=== PATIENT | female | born 1935 | race Caucasian/White ===

== ENCOUNTER 2017-12-21 13:33 | Inpatient (IN) | payer OTHER ==
[~2017-12-21] VITALS: Ht 157.5 cm; Wt 72.5 kg
[~2017-12-21 13:33] MED LIST: ADVAIR 500/501 DISK IH; AERONEB GO NEB1 EACH MC; ALBUTEROL SULF8.5 GM IH; ALPRAZOLAM0.25 M2 PO; ALPRAZOLAM0.25 MG PO; AMLODIPINE BESYL5 MG PO; APRISO0.375 GM PO; ASACOL400 MG PO; ASPIR-TRIN325 M1 PO; ASPIRIN325 MG PO; BENTYL10 MG PO; BENTYL20 MG PO; CARDIZEM CD,CA240 M1 PO; CARDIZEM CD,CA360 MG PO; CARDIZEM CD360 MG PO; CATAPRES0.2 MG PO; CELEBREX200 MG PO; CIPRO250 MG PO; CIPRO500 MG PO; CLONAZEPAM1 MG PO; CLONIDINE HCL0.2 MG PO; COLACE100 MG PO; COMBIVENT INH14.7 GM IH; COMBIVENT RESPIM4 GM IH; COMBIVENT200 INHALA IH; COZAAR50 MG PO; DELZICOL400 M1 PO; DELZICOL400 MG PO; DICYCLOMINE HCL20 MG PO; DILTIAZEM 24HR360 M1 PO; DULCOLAX5 MG PO; DUONEB 2.5-0.5 M3 ML AEROSOL; DUONEB 2.5-0.5 M3 ML IH; DUONEB3 ML IH; ENALAPRIL MALEAT5 M1 PO; ENDOCET 5-3251 EACH PO; ERY-TAB500 MG PO; EXTRA STRENGTH500 M1 PO; FLAGYL500 MG PO; FLEXERIL10 MG PO; FUROSEMIDE40 MG PO; HYDROCODON-ACE1 EAC7 PO; K-DUR10 MEQ PO; KLOR-CON 1010 ME1 PO; KONSYL1 EACH PO; LASIX40 MG PO; LEVAQUIN750 MG PO; LITE COAT ASPI325 M1 PO; LOPRESSOR12.5 MG PO; LOPRESSOR25 MG PO; LOPRESSOR50 MG PO; LOSARTAN POTAS100 MG PO; LOSARTAN POTASS50 MG PO; Levaquin PO; METAMUCIL PACKE1 PKT PO; METOPROLOL TART25 MG PO; METOPROLOL TART50 MG PO; METRONIDAZOLE500 MG PO; MICRO-K10 ME1 PO; MIRTAZAPINE30 MG PO; Metamucil Packet PO; Motrin PO; NASONEX17 GM BOTH NARES; NASONEX17 GM NS; NORCO 5/3251 TABLET PO; OMEPRAZOLE40 M1 PO; OXAYDO5 MG PO; OXYCODONE HCL5 MG PO; PAROXETINE HCL10 MG PO; PAXIL10 MG PO; PENTASA250 MG PO; PERCOCET 5/31 TABLET PO; PHILLIPS' COLO1 EACH PO; POLYETHYLENE GL17 GM PO; POTASSIUM CHLO10 ME3 PO; PREDNISOLONE SO10 MG PO; PREDNISONE20 MG PO; PREDNISONE5 MG PO; PRILOSEC40 MG PO; PROMETHAZINE HC25 M1 PO; PROMETHAZINE12.5 M1 PO; REMERON15 M2 PO; REMERON30 M2 PO; ROXICODONE5 MG PO; Remeron PO; SIMVASTATIN40 MG PO; SINGULAIR10 MG PO; TAZTIA XT360 MG PO; THEO-DUR,THEOC200 MG PO; THEOPHYLLINE A200 M1 PO; TRAMADOL HCL50 MG PO; TYLENOL EXTRA500 MG PO; Tylenol Extra Streng PO; ULTRAM50 MG PO; WELLBUTRIN SR150 MG PO; Wellbutrin SR PO; XANAX0.25 MG PO; Xanax PO; ZOCOR40 MG PO; ZOLOFT25 MG PO; ZOLOFT50 MG PO; [UNRECOGNIZED DRUG - OTHER] PO
[2017-12-21 14:41] LABS: BASOPHIL (%) 0.6 % (0-1); EOSINOPHIL (%) 2.6 % (0-5); EOSINOPHIL COUNT 0.1 K/uL (0-0.3); HEMATOCRIT 33.4 % (36.0-46.0); HEMOGLOBIN 11.4 G/DL (11.9-15.5); IMMATURE GRANULOCYTE (%) 0.7 % (0.0-0.7); LYMPHOCYTE (%) 13.3 % (15-42); LYMPHOCYTE COUNT 0.7 K/uL (1.0-2.8); MCH 34.1 PG (29.0-34.0); MCHC 34.1 G/DL (30.0-36.0); MONOCYTE (%) 9.9 % (3-12); MONOCYTE COUNT 0.5 K/uL (0-0.8); NEUTROPHIL (%) 72.9 % (45-76); NEUTROPHIL COUNT 3.9 K/uL (1.8-6.4); PLATELET COUNT 187 K/uL (156-360); RBC DIS.WIDTH-CV 13.5 % (11.8-14.6); RBC DIS.WIDTH-SD 48.5 % (39-53); RED BLOOD COUNT 3.34 M/uL (3.80-5.20); WHITE BLOOD COUNT 5.4 K/uL (4.1-10.2)
[2017-12-21 14:49] LABS: INTER. NORMALIZED RATIO 1.1
[2017-12-21 14:50] LABS: CHLORIDE 108 mEq/L (99-109); POTASSIUM 3.9 mEq/L (3.7-5.4); SODIUM 143 mEq/L (136-147)
[2017-12-21 14:51] LABS: PTT 27.7 SEC (25-37)
[2017-12-21 14:52] LABS: GLUCOSE 106 mg/dL (70-99)
[2017-12-21 14:56] LABS: CREATININE 1.1 mg/dL (0.6-1.3); GFR ESTIMATE (CALCULATED) 51 mL/min/
[2017-12-21 14:57] LABS: UREA NITROGEN (BUN) 15 mg/dL (9-23)
[2017-12-21 15:01] LABS: TROP-I INTERPRETATION NEGATIVE; TROPONIN-I < 0.01 ng/mL (0.0-0.30)
[2017-12-21] MEDS ORDERED: COZAAR100 MG PO (19:02)
[2017-12-21] MEDS ORDERED: CATAPRES0.1 MG PO (19:03)
[2017-12-21] MEDS ORDERED: LOPRESSOR25 MG PO (19:04)
[2017-12-21] MEDS ORDERED: SPIRIVA RESPIMAT4 GM IH (19:05)
[2017-12-21] MEDS ORDERED: MIRTAZAPINE30 MG PO (19:05)
[2017-12-21] MEDS ORDERED: LIDOCAINE PAIN1 EACH TP (19:06)
[2017-12-21] MEDS ORDERED: TYLENOL EXTRA500 MG PO (19:07)
[2017-12-21] MEDS ORDERED: MICRO-K10 ME2 PO (19:08)
[2017-12-21] MEDS ORDERED: AMLODIPINE BESY10 MG PO (19:12)
[2017-12-21] MEDS ORDERED: SERTRALINE HCL25 MG PO (19:12)
[2017-12-21 21:51] LABS: TROP-I INTERPRETATION NEGATIVE; TROPONIN-I < 0.01 ng/mL (0.0-0.30)
[2017-12-21 22:06] VITALS: BP 126/61
[2017-12-22 04:00] VITALS: BP 173/74
[2017-12-22 06:15] LABS: HEMOGLOBIN 11.5 G/DL (11.9-15.5); MCH 33.2 PG (29.0-34.0); MCHC 32.9 G/DL (30.0-36.0); MCV 101.2 FL (83-99); NRBC (%) 0.4 /100 WBC (0-0); PLATELET COUNT 205 K/uL (156-360); RBC DIS.WIDTH-CV 13.3 % (11.8-14.6); RBC DIS.WIDTH-SD 49.3 % (39-53); RED BLOOD COUNT 3.46 M/uL (3.80-5.20); WHITE BLOOD COUNT 5.1 K/uL (4.1-10.2)
[2017-12-22 06:37] LABS: CHLORIDE 107 MEQ/L (99-109); CREATININE 1.1 MG/DL (0.6-1.3); GFR ESTIMATE (CALCULATED) 51 mL/min/; POTASSIUM 4.2 MEQ/L (3.7-5.4); SODIUM 143 MEQ/L (136-147); UREA NITROGEN (BUN) 16 mg/dL (9-23)
[2017-12-22 06:39] LABS: TROP-I INTERPRETATION NEGATIVE; TROPONIN-I < 0.01 ng/mL (0.0-0.30)
[2017-12-22 06:49] LABS: GLUCOSE 190 mg/dL (70-99)
[2017-12-22 07:36] VITALS: BP 139/65
[2017-12-22 11:46] VITALS: BP 133/58
[2017-12-22 15:50] LABS: APPEARANCE CLEAR ((CLEAR)); BILIRUBIN NEGATIVE; BLOOD NEGATIVE; COLOR YELLOW ((YELLOW)); GLUCOSE (STRIP) >=500; KETONES NEGATIVE; LEUKOCYTES TRACE; NITRITE NEGATIVE; PROTEIN (STRIP) 30; UROBILINOGEN 0.2 MG/DL (0.2-1.0)
[2017-12-22 16:06] VITALS: BP 132/64
[2017-12-22 16:11] LABS: BACTERIA NONE SEEN /HPF; EPITHELIAL CELLS RARE /HPF; HYALINE CASTS 0-5 /LPF; MUCUS TRACE /LPF; RED BLOOD CELLS 0-5 /HPF (0-5); UCUL ADDED? NO; WHITE BLOOD CELLS 0-5 /HPF (0-5)
[2017-12-22 19:30] VITALS: BP 132/61
[2017-12-23 00:06] VITALS: BP 138/64
[2017-12-23 03:51] VITALS: BP 131/72
[2017-12-23 07:36] VITALS: BP 128/78
[2017-12-23] MEDS ORDERED: PREDNISONE20 MG PO (08:11)
[2017-12-23] MEDS ORDERED: DUONEB 2.5-0.5 M3 ML AEROSOL (10:43)
== END 2017-12-23 10:48 | disposition home or self-care (01) | DRG 190 ==
LOC: EME 13:33 → 5SOUTH 20:27 → EDOF 20:27 → 5SOUTH 21:15
PROVIDERS: Emergency Medicine; Hospitalist; Physician Assistant
DX: J44.1 Chronic obstructive pulmonary disease with (acute) exacerbation (principal); J96.21 Acute and chronic respiratory failure with hypoxia; J45.901 Unspecified asthma with (acute) exacerbation; K58.9 Irritable bowel syndrome, unspecified; I48.0 Paroxysmal atrial fibrillation; F41.9 Anxiety disorder, unspecified; F32.9 Major depressive disorder, single episode, unspecified; I10 Essential (primary) hypertension; G47.33 Obstructive sleep apnea (adult) (pediatric); Z79.82 Long term (current) use of aspirin; Z79.899 Other long term (current) drug therapy; Z80.1 Family history of malignant neoplasm of trachea, bronchus and lung; Z82.3 Family history of stroke; Z85.118 Personal history of other malignant neoplasm of bronchus and lung; Z87.891 Personal history of nicotine dependence; Z90.710 Acquired absence of both cervix and uterus; Z99.81 Dependence on supplemental oxygen
CPT/HCPCS: 71045; 80048; 81003; 83880; 84484; 85025; 85027; 85610; 85730; 93005; 93306; 94640; 94660; 94669; 94799; 99281; 99285; J1644; J2920